=== PATIENT | male | born 1955 | race Caucasian/White ===

== ENCOUNTER 2017-02-02 14:04 | Inpatient (IN) ==
--- NOTE | 2017-02-02 14:43 | Emergency Department Report ---
URI/Sore Throat HPI - General Chief Complaint: Upper Respiratory Infection Stated Complaint: LBP Time Seen by Provider: 02/02/17 14:42 - Related Data Home Medications Medication Instructions Recorded Confirmed Advair Diskus (Fluticasone 250 1 puff INH Q12H 10/02/16 02/02/17 mcg-salmeterol 50 mcg)dose powdr for inhalation Albuterol Sulfate [Proventil Hfa 90 mcg INH Q6H PRN 02/02/17 02/02/17 90mcg] Escitalopram Oxalate [Lexapro] 20 mg PO DAILY 02/02/17 02/02/17 Previous Rx's Medication Instructions Recorded Restoril (temazepam) 15 mg capsule 15 mg PO DAILY #30 cap 01/27/17 Allergies Allergy/AdvReac Type Severity Reaction Status Date / Time No Known Allergies Allergy Verified 02/02/17 13:02 [facility] Patient Stated Medical History Asthma Yes Clinic Medical History (Last Reviewed 02/02/17 @ 13:06 by WARREN De Guzman) Anxiety (Chronic Medical) Tobacco abuse (Chronic Medical) Asthma (Chronic Medical) Family History: Family History (Last Reviewed 02/02/17 @ 13:06 by WARREN De Guzman) Father Leukemia Mother No problems noted. Sister No problems noted. Sister Drug abuse Son No problems noted. Daughter No problems noted. Sister No problems noted. Sister No problems noted. Son No problems noted. - Social History Smoking status: Current every day smoker Course Vital Signs Temperature 98.1 F 02/02/17 14:07 Pulse Rate 112 H 02/02/17 14:07 Respiratory Rate 20 02/02/17 14:07 Blood Pressure 121/68 02/02/17 14:07 Pulse Oximetry 90 02/02/17 14:07 Temperature 98.1 F 02/02/17 14:07 Pulse Rate 97 02/02/17 16:02 Respiratory Rate 16 02/02/17 16:49 Blood Pressure 112/63 02/02/17 16:02 Pulse Oximetry 92 02/02/17 16:49 Upper Respiratory Infection - Lab Data Result diagrams: 02/02/17 15:00 02/02/17 15:00 Lab Results 02/02/17 02/02/17 02/02/17 Range/Units 15:00 15:00 15:00 WBC 9.5 (4.5-11.0) T/MM3 RBC 4.75 (4.50-5.90) M/MM3 Hgb 15.6 (13.5-17.5) GM/DL Hct 45.4 (41-53) % MCV 95.6 (80-100) UM3 MCH 32.8 (26-34) UUG MCHC 34.4 (31-37) GM/DL RDW Std Deviation 44.9 (36.9-50.2) FL Plt Count 151 (130-400) T/MM3 MPV 10.4 (9.4-12.4) UM3 Immature Gran % (Auto) Not performed Neut % (Auto) Not performed Lymph % (Auto) Not performed [place] % (Auto) Not performed Eos % (Auto) Not performed Baso % (Auto) Not performed Neut # (Auto) Not performed Lymph # (Auto) Not performed [place] # (Auto) Not performed Eos # (Auto) Not performed Baso # (Auto) Not performed Abs Immat Gran (auto) Not performed Neutrophils % (Manual) 74.0 H (33-66) % Band Neutrophils % 3.0 (0-6) % Lymphocytes % (Manual) 17.0 L (23-45) % Monocytes % (Manual) 5.0 (0-9.0) % Eosinophils % (Manual) 1.0 (0-4) % Neutrophils # (Manual) 7.0 (1.8-7.7) T/MM3 Band Neutrophils # 0.3 T/MM3 Lymphocytes # (Manual) 1.6 (1-4.8) T/MM3 Monocytes # (Manual) 0.5 (0-0.8) T/MM3 Eosinophils # (Manual) 0.1 (0-0.5) T/MM3 RBC Morph Comment Normal Turbidity < 20 (0-20) Sodium 133 L (134-144) MEQ/L Potassium 4.0 (3.6-5) MEQ/L Chloride 96 L (98-107) MEQ/L Carbon Dioxide 25 (22-30) MEQ/L Anion Gap 12 (5-15) MEQ/L BUN 15.0 (9-20) MG/DL Creatinine 0.8 (0.8-1.5) MG/DL GFR Calculation 98 BUN/Creatinine Ratio 19 (6-26) RATIO Glucose 101 (75-110) MG/DL Calculated Osmolality 257 L (261-280) MOSM/KG Calcium 8.3 L (8.4-10.2) MG/DL Total Bilirubin 0.40 (0.20-1.30) MG/DL Icterus Index < 2 (0-7) AST 49 (17-59) U/L ALT 38 (21-72) U/L Alkaline Phosphatase 62 (38-126) U/L Troponin I < 0.012 (0-0.12) ng/ml Total Protein 6.4 (6.3-8.2) G/DL Albumin 3.8 (3.5-5.0) G/DL Globulin 2.6 (2.4-3.6) G/DL Albumin/Globulin Ratio 1.5 (1.1-2.2) RATIO Specimen Hemolysis < 15 (0-25) Adenovirus (PCR) Negative (Negative) B.parapertussis DNA PCR Negative (Negative) C. pneumoniae DNA (PCR) Negative (Negative) Coronavirus OC43 (PCR) Negative (Negative) Coronavirus HKU1 (PCR) Negative (Negative) Coronavirus 229E (PCR) Negative (Negative) Coronavirus NL63 (PCR) Negative (Negative) Human Metapneumovir PCR Negative (Negative) Influenza Type A (PCR) Detect inf a h1-2009 A (Negative) Influenza Type B (PCR) Negative (Negative) M. pneumoniae (PCR) Negative (Negative) Parainfluenza 1 (PCR) Negative (Negative) Parainfluenza 2 (PCR) Negative (Negative) Parainfluenza 3 (PCR) Negative (Negative) Parainfluenza 4 (PCR) Negative (Negative) RSV (PCR) Negative (Negative) Entero/Rhino (PCR) Negative (Negative) Disposition Clinical Impression: Influenza A, Hypoxemia requiring supplemental oxygen Disposition: 02 To [facility] [place] Care Condition: Stable Prescriptions: No Action Escitalopram Oxalate [Lexapro] 20 mg PO DAILY Albuterol Sulfate [Proventil Hfa 90mcg] 90 mcg INH Q6H PRN PRN Reason: Shortness Of Air Restoril (temazepam) 15 mg capsule 15 mg PO DAILY #30 cap Advair Diskus (Fluticasone 250 mcg-salmeterol 50 mcg)dose powdr for inhalation 1 puff INH Q12H Referrals: Lj Velasco DO [Family Provider] - Time of Disposition: 17:11 - Seen By: physician
[2017-02-02] MEDS ORDERED: ALBUTEROL/IPRATROPIUM 2.5mg-0.5mg/3ml NEB AEROSOL ONE ×2 (14:48→16:21)
[2017-02-02] MEDS ORDERED: METHYLPREDNISOLONE SOD SUCC 125mg/2ml INJECTION IVP ONE (16:21)
[2017-02-02] MEDS: SALINE FLUSH 10ml SYRINGE IVF PRN (16:39)
--- NOTE | 2017-02-02 17:57 | History & Physical Report ---
History of Present Illness Date: 02/02/17 Chief complaint: cough, cold symptoms, fatigue HPI: Enrique Emery is a 61 year old male who became sick on 01/28/17 with cough, cold, and severe fatigue. He spent a couple of days in bed. He and his suspect a fever b/c he's had times when he's freezing cold and then has night sweats. He hasn't felt terribly short of breath but has been coughing hard, and his lower abdomen is sore each time he coughs or moves. He hasn't had an appetite but has been trying to drink plenty of water and gatorade. He hasn't smoked cigarettes for the last few days. He denies headache, dizziness, or sore throat. He denies abdominal pain, nausea, or vomiting. He's had mild problems with constipation but this is improving. He denies urinary changes. No leg swelling, chest pain, or palpitations. He states that overall, he's healthy, but takes medication to help him sleep at night. He saw his PCP Dr. Velasco on 02/02/17 for abdominal pain, and in the clinic was found to be hypotensive 97/64, tachycardic 113, and hypoxic on room air 89%. Dr. Velasco recommended admission to the hospital, but Enrique initially declined, but agreed to have further evaluation. He was seen in the ED, and again was hypoxic at 88% on room air. Viral panel was positive for influenza A (he did not receive flu shot this year). WBC was normal at 9.5; Na was slightly low at 3.3. CXR and KUB were reviewed - CXR showed hyperinflation but no obvious pneumonia and KUB was negative for obstruction. He was given a DuoNeb treatment and Solu-Medrol in the ED. With his hypoxia, he was agreeable to admission, and was placed into inpatient status. LOS is expected to exceed 2 overnights. Review of Systems All systems PM: 10-point ROS was reviewed, no additional remarkable complaints except - Constitutional Constitutional: Present: as per HPI, anorexia, chills, daytime sleepiness, fatigue, fever(s) - EENMT Eyes: Absent: change in vision Nose: Present: as per HPI Mouth/Throat: Present: dry mouth. Absent: sore throat - Cardiovascular Cardiovascular: Absent: chest pain - Respiratory Respiratory: Present: cough. Absent: chest congestion - Gastrointestinal Gastrointestinal: Present: abdominal pain, constipation. Absent: diarrhea, vomiting - Genitourinary Genitourinary: Absent: difficulty urinating, dysuria - Musculoskeletal Musculoskeletal: Absent: myalgias, stiffness - Integumentary/Breasts Integumentary: Absent: rash, wounds - Neurological Neurological: Absent: abnormal gait, confusion, dizziness, headache(s), numbness - Psychiatric Psychiatric: Present: abnormal sleep pattern. Absent: anxiety, depression - Endocrine Endocrine: Present: as per HPI, excessive sweating - Hematologic/Lymphatic Hematologic/Lymphatic: Absent: easy bruising Past Medical History Asthma, suspect COPD Underweight, BMI 18.3 Surgical History: Denies. Family History Updates: Father of leukemia around age 72. Mother of complications of Alzheimer's at age 78. Enrique doesn't know medical history for his paternal grandparents, but his maternal grandparents were healthy to his recollection and at old ages. Enrique has 4 sisters, all of whom are healthy. - Social History Smoking status: Current every day smoker Packs per day: 0.5 Packs-years: 20 Substance use type: does not use Alcohol intake frequency: other (drinks most days per week, intake varies and includes beer and Fireball shots) Household members: spouse Current occupation: crime lab technician Medications Home Medications Medication Instructions Recorded Confirmed Type Advair Diskus (Fluticasone 250 1 puff INH Q12H 10/02/16 02/02/17 History mcg-salmeterol 50 mcg)dose powdr for inhalation Albuterol Sulfate [Proventil Hfa 90 mcg INH Q6H PRN 02/02/17 02/02/17 History 90mcg] Escitalopram Oxalate [Lexapro] 20 mg PO DAILY 02/02/17 02/02/17 History Allergies Allergy/AdvReac Type Severity Reaction Status Date / Time No Known Allergies Allergy Verified 02/02/17 13:02 Exam Vital Signs: Temperature 98.1 F 02/02/17 14:07 Pulse Rate 110 H 02/02/17 17:30 Respiratory Rate 21 02/02/17 17:30 Blood Pressure 126/60 02/02/17 17:27 Pulse Oximetry 87 L 02/02/17 17:30 Height/Weight/BMI: Height 1.83 m Weight 61.1 kg - Constitutional Present: no acute distress, well nourished, well developed, thin - Routine HEENT Exam Head: Present: normocephalic Eye: Present: PERRL. Absent: conjunctival icterus, scleral injection ENT: Present: mucous membranes dry, oropharynx clear - Routine Neck Exam Present: lymphadenopathy - Routine Respiratory Exam Present: decreased breath sounds - Routine Cardiovascular Exam Present: RRR, S1, S2, tachycardia - Routine Abdominal Exam Present: soft, normoactive bowel sounds, tenderness (diffuse tenderness to lower quadrants) - Routine Extremities Exam Present: no edema, pulses intact - Routine Back/Spine/Pelvis Exam Back/Spine: Present: full ROM - Routine Skin Exam Present: intact, dry, warm - Routine Neurological Exam Present: alert, oriented X3, CN II-XII intact, normal speech - Routine Psychiatric Exam Present: normal affect, normal thought process, cooperative Results - Labs CBC & Chem 7: 02/02/17 15:00 02/02/17 15:00 Assessment and Plan (1) Hypoxemia requiring supplemental oxygen Current visit: Yes Status: Acute Assessment and Plan: IMPRESSION Hypoxia with room air saturations of 88% Influenza A Hyponatremia, present on admission Asthma, suspect COPD Tobaccoism Alcohol use Underweight, BMI 18.3 PLAN Admit, inpatient status, under the hospitalist service. Influenza A -start Tamiflu -respiratory precautions Hypoxia, suspect COPD -supplemental oxygen -DuoNebs, Pulmicort, acapella -No wheezing heard on exam; will hold off on additional steroids but if he begins to wheeze we may consider steroids -consider f/u with pulmonology, consult if resp sx worsen -tobacco cessation counseling; pt voiced interest in quitting Hyponatremia, mild -repeat BMP in am -asymptomatic Alcohol use -Serax PRN -denies hx of withdrawal sx -start folic acid and thiamine daily 02/02/2017-I reviewed this chart, the patient history, and the PUBLIC HEALTH CLINICAL NURSE SPECIALIST's/PA's documented findings as above. We discussed and formulated the assessment and plan as above with the additions below.-Jose Daniel The patient states that he no longer feels short of breath. He is currently on 5 L of oxygen. He has had a dry cough. He feels thirsty. He has some lower abdominal pain which she thinks is from frequent coughing. He denies any nausea , vomiting or diarrhea. He is urinating without difficulties. He has recently had fevers and chills and loss of appetite over the past 5 days. Prior to this illness he was doing well. Weight has been stable. On exam he is alert and oriented and in no acute distress. He is very thin. HEENT reveals oropharynx is moist with white coating on his tongue which is not painful. Neck is supple without lymphadenopathy. Chest reveals minimal wheezing. Mild coarse breath sounds in the right base. Abdomen is soft with mild tenderness in the lower abdomen which she thinks is from coughing. Extremities are free of edema. Skin is warm and dry and without rashes. Lab is reviewed Chest x-ray is clear on my read and per radiology. There is hyper inflation suggesting COPD KUB reveals a nonobstructive nonspecific bowel gas pattern Impression Influenza A Acute respiratory failure secondary to influenza Probable COPD with COPD exacerbation Mild hyponatremia Chronic alcohol use-no signs of withdrawal Plan Admit as inpatient. Supplemental O2. Tamiflu. Breathing treatments. We'll continue IV steroids. We'll check lactate and ABG. We'll give folate and thiamine. The patient was encouraged to notify his nurse if he feels short of breath, or has chest pain, nausea or any other concerns. Recheck chest x-ray tomorrow. DVT Prophylaxis: SCD's Resuscitation Status: Full Code - Physician Narrative Narrative: Date: 02/02/17 Time: 1753 Hospital Course Summary Disclaimer: The visit summary below is not to be considered part of the above Progress Note. Hospital Course: 02/02/17 Admitted to inpatient status for hypoxemia with room air saturation of 88%. Started Tamiflu for influenza A. CXR showed hyperinflation. Provided supportive respiratory care with Sammy Manuel acapella. Tobacco cessation information provided.
[2017-02-02] MEDS ORDERED: NICOTINE 21 MG PATCH TD PRN (18:10)
[2017-02-02] MEDS ORDERED: OXAZEPAM 30 MG CAPSULE PO PRN (18:11)
[2017-02-02] MEDS ORDERED: GUAIFENESIN/D-METHORPHAN 600mg/30mg TABLET PO PRN (18:19)
[2017-02-02] MEDS ORDERED: MENTHOL COUGH DROPS (RICOLA) MM PRN (18:20)
[2017-02-02] MEDS ORDERED: ACETAMINOPHEN 325 MG TABLET PO PRN (18:21)
[2017-02-02 18:22] VITALS: BMI 17.4
[2017-02-02] MEDS ORDERED: NICOTINE PATCH REMOVAL TD PRN (18:47)
[2017-02-02] MEDS: TEMAZEPAM 15 MG CAPSULE PO SCH (20:08)
[2017-02-02] MEDS: ALBUTEROL/IPRATROPIUM 2.5mg-0.5mg/3ml NEB AEROSOL SCH (20:19)
[2017-02-02] MEDS: BUDESONIDE INH.SOLN 0.5mg/2ml NEB AEROSOL SCH (20:19)
[2017-02-03] MEDS: ALBUTEROL/IPRATROPIUM 2.5mg-0.5mg/3ml NEB AEROSOL SCH ×4 (09:25→21:09)
[2017-02-03] MEDS: BUDESONIDE INH.SOLN 0.5mg/2ml NEB AEROSOL SCH ×2 (09:25→21:09)
[2017-02-03] MEDS: FOLIC ACID 1 MG TABLET PO SCH (09:59)
[2017-02-03] MEDS: ESCITALOPRAM 20 MG TABLET PO SCH (09:59)
[2017-02-03] MEDS ORDERED: DEXTROSE 50% SYRINGE 50ml (1 AMP) IVP PRN (10:31)
[2017-02-03] MEDS ORDERED: GLUCOSE ORAL GEL 40% 37.5gm PO PRN (10:31)
[2017-02-03] MEDS ORDERED: INSULIN ASPART 100unit/ml INJECTION SQ PRN (10:31)
--- NOTE | 2017-02-03 15:18 | Progress Note ---
- Date 02/03/17 Subjective: Enrique is seen today in follow up for his respiratory distress with hypoxia secondary to influenza A. He is seen while resting in bed, watching TV and reports that he is feeling significantly better today. He reports that his breathing is improved and he only coughs occasionally. His cough remains non- productive. No fever or chills. He continues to require supplemental oxygen but has been weaned down to 1L via NC, maintaining SAO2 around 90%. He states that his appetite has significantly improved today and his bowels are moving. No chest pain, shortness of breath, nausea, vomiting or dysuria. He continues to complain of abdominal pain but is clear to specify that it is his abdominal muscles that hurt from excessive coughing. Hyponatremia resolved. He denies any signs of alcohol or tobacco withdrawal. Objective Vital signs: Temperature 96.8 F 02/03/17 08:23 Pulse Rate 82 02/03/17 15:08 Respiratory Rate 20 02/03/17 15:08 Blood Pressure 114/66 02/03/17 15:08 Pulse Oximetry 90 02/03/17 15:08 Rhythm: Normal Sinus Rhythm Height/Weight/BMI: Height 6 ft Weight 126 lb 15.78 oz Body Mass Index 17.4 Comments: Resting in bed, watching TV and in no apparent distress. A&O x 3. No cough on exam. - Constitutional Present: no acute distress, well nourished, well developed, thin, cooperative - Routine HEENT Exam Head: Present: normocephalic, atraumatic Eye: Present: PERRL. Absent: conjunctival icterus ENT: Present: mucous membranes moist. Absent: dentition normal (missing front teeth) - Routine Respiratory Exam Present: decreased breath sounds, diminished air movement Comments: breathing easily on 1L NC; no conversational dyspnea or cough on exam; course breath sounds bilaterally without wheezing. - Routine Cardiovascular Exam Present: RRR, S1, S2 - Routine Abdominal Exam Present: soft, normoactive bowel sounds, non distended, non tender. Absent: rebound, guarding, firm - Routine Extremities Exam Present: no edema, non tender, full ROM, pulses intact - Routine Back/Spine/Pelvis Exam Back/Spine: Present: full ROM. Absent: vertebral tenderness - Routine Musculoskeletal Exam Musculoskeletal: Present: moving extremities well - Routine Skin Exam Present: intact, dry, warm. Absent: jaundice Comments: afebrile. - Routine Neurological Exam Present: alert, oriented X3, moving all extremities, hearing grossly intact, normal speech. Absent: facial asymmetry - Routine Lymphatic Exam Lymphatic: Absent: lymphedema - Routine Psychiatric Exam Present: normal affect, normal thought process, cooperative Results - Labs CBC & Chem 7: 02/02/17 15:00 02/03/17 03:59 - ABG Interpretation ABG results: 02/02/17 18:40 ABG pH 7.490 H ABG pCO2 34 ABG pO2 63 L ABG HCO3 26 ABG Total CO2 26.9 ABG O2 Saturation 94.0 L ABG Base Excess 2.8 H Assessment and Plan (1) Hypoxemia requiring supplemental oxygen Current visit: Yes Status: Acute (2) Influenza A Current visit: Yes Status: Acute Assessment and Plan: IMPRESSION Hypoxia with room air saturations of 88% Influenza A Hyponatremia, present on admission Asthma, suspect COPD Tobaccoism Alcohol use Underweight, BMI 18.3 PLAN - 02/03/17 (Mirakian) Overall, Enrique is making good gains and reports feeling much better. He continues to require supplemental oxygen but has been weaned down to 1L via NC. Continue to wean down oxygen as he does not wear oxygen at home. Suspected history of COPD given history of tobaccoism and initial CXR findings consistent with COPD. Recommend goal of pulse ox to be 90-95%. Continue Tamiflu for treatment of influenza A - initiated on 02/02/17-02/06/17. Maintain respiratory precautions until Tamiflu is complete. No wheezing heard on exam, though course lung sounds noted bilaterally in bases. Continue DuoNeb and Pulmicort treatments and encourage Acapella for pulmonary toileting. Given improved state without wheezing, will continue to hold off on steroid treatment. Discussed with Dr. Sky. Consider follow-up with pulmonology as out patient for additional pulmonary function testing given suspected COPD. Tobacco cessation counseling provided. Continue to encourage smoking cessation and nicotine patch provided. Asymptomatic hyponatremia noted on admission and resolved. Continue to monitor closely. Will recheck BMP in AM to monitor electrolytes and renal function. Encourage oral intake. History of daily alcohol use prior to admission. Patient denies withdrawal. Continue Serax PRN as well as folic acid and thiamine daily. Hyperglycemia noted with fasting labs. Suspect secondary to steroid effect and anticipate resolution in light of discontinuation of steroids. Will discontinue BGMs. Anticipate discharge in near future, hopefully 02/04/17. He denies a history of oxygen use at home. 02/03/2017-I reviewed this chart, the patient history, and the CODING FILE CLERK's/PA's documented findings as above. We discussed and formulated the assessment and plan as above with the additions below.-Dr. Sky Patient states he is feeling better today. His energy level is better. He is eating and drinking much better. He was down to 1 L per nasal cannula, but is now back up to 2.5 L. His oxygen saturation is currently 90% on 2.5 L. He denies any pain. On exam he is alert and oriented and in no acute distress. He has no tremulousness. Chest reveals prolonged expiratory phase and some end expiratory wheezing. Cardiovascular reveals a regular rate and rhythm. Extremities are free of edema. Chest x-ray today shows no infiltrates. He does have hyper inflation. Impression and plan Acute hypoxic respiratory failure-continue oxygen, breathing treatments Influenza A- continue Tamiflu, isolation precautions Probable COPD exacerbation-start low-dose steroids orally Hopefully home in the next few days. I did encourage the patient to get the flu shot yearly. I also recommended he get the pneumonia vaccine if he has not already received it. DVT Prophylaxis: SCD's Resuscitation Status: Full Code - Time spent with patient Time with patient PN: 35 minutes - Physician Narrative Physician: Maylin Johansen MD Narrative: Date: 02/03/17 Time: 1515 Hospital Course Summary Disclaimer: The visit summary below is not to be considered part of the above Progress Note. Hospital Course: 02/02/17 Admitted to inpatient status for hypoxemia with room air saturation of 88%. Started Tamiflu for influenza A. CXR showed hyperinflation. Provided supportive respiratory care with DuoNebs, Pulmicort, acapella. Tobacco cessation information provided. PLAN - 02/03/17 ([place]akian) Overall, Enrique is making good gains and reports feeling much better. He continues to require supplemental oxygen but has been weaned down to 1L via NC. Continue to wean down oxygen as he does not wear oxygen at home. Suspected history of COPD given history of tobaccoism and initial CXR findings consistent with COPD. Recommend goal of pulse ox to be 90-95%. Continue Tamiflu for treatment of influenza A - initiated on 02/02/17-02/06/17. Maintain respiratory precautions until Tamiflu is complete. No wheezing heard on exam, though course lung sounds noted bilaterally in bases. Continue DuoNeb and Pulmicort treatments and encourage Acapella for pulmonary toileting. Given improved state without wheezing, will continue to hold off on steroid treatment. Discussed with Dr. Sky. Consider follow-up with pulmonology as out patient for additional pulmonary function testing given suspected COPD. Tobacco cessation counseling provided. Continue to encourage smoking cessation and nicotine patch provided. Asymptomatic hyponatremia noted on admission and resolved. Continue to monitor closely. Will recheck BMP in AM to monitor electrolytes and renal function. Encourage oral intake. History of daily alcohol use prior to admission. Patient denies withdrawal. Continue Serax PRN as well as folic acid and thiamine daily. Hyperglycemia noted with fasting labs. Suspect secondary to steroid effect and anticipate resolution in light of discontinuation of steroids. Will discontinue BGMs. Anticipate discharge in near future, hopefully 02/04/17. He denies a history of oxygen use at home.
--- NOTE | 2017-02-03 15:31 | XRay Report ---
Indication: dyspnea PROCEDURE: XR chest 1V: Encounter: Initial Comparison: February 02, 2017 Findings: The lungs are stable in appearance without new focal airspace consolidation. There is no pleural effusion or pneumothorax. The heart size, pulmonary vascularity and mediastinal contours are unchanged. IMPRESSION: Stable appearance of the chest without acute cardiopulmonary disease. .
[2017-02-03] MEDS ORDERED: ENOXAPARIN - PHARMACY CONSULT MC ONE (18:40)
[2017-02-03] MEDS: PredniSONE 20 MG TABLET PO SCH (19:09)
[2017-02-03] MEDS: ENOXAPARIN 40 MG/0.4 ML INJECTION SQ SCH (19:09)
[2017-02-03] MEDS: TEMAZEPAM 15 MG CAPSULE PO SCH (21:06)
[2017-02-03] MEDS: SALINE FLUSH 10ml SYRINGE IVF PRN (21:06)
[2017-02-04] MEDS: BUDESONIDE INH.SOLN 0.5mg/2ml NEB AEROSOL SCH ×2 (08:01→19:38)
[2017-02-04] MEDS: ALBUTEROL/IPRATROPIUM 2.5mg-0.5mg/3ml NEB AEROSOL SCH ×4 (08:01→19:37)
[2017-02-04] MEDS: ENOXAPARIN 40 MG/0.4 ML INJECTION SQ SCH (08:46)
[2017-02-04] MEDS: ESCITALOPRAM 20 MG TABLET PO SCH (08:46)
[2017-02-04] MEDS: FOLIC ACID 1 MG TABLET PO SCH (08:46)
[2017-02-04] MEDS: PredniSONE 20 MG TABLET PO SCH (08:46)
--- NOTE | 2017-02-04 15:50 | Progress Note ---
- Date 02/04/17 Subjective: Mr Emery is seen and examined today. Overall he states that he is feeling much better. He does get up to go to the bathroom and this wears him out. He continues to require 3 liters of oxygen to maintain saturations. His cough is not productive. Appetite improving. Afebrile. Objective Vital signs: Temperature 97.7 F 02/04/17 15:09 Pulse Rate 76 02/04/17 15:09 Respiratory Rate 18 02/04/17 15:09 Blood Pressure 104/64 02/04/17 15:09 Pulse Oximetry 95 02/04/17 15:09 Height/Weight/BMI: Height 1.83 m Weight 57.2 kg Body Mass Index 17.4 - Constitutional Present: no acute distress, well nourished, well developed - Routine HEENT Exam Eye: Present: EOMI ENT: Present: mucous membranes moist, dentition normal - Routine Respiratory Exam Present: wheezes, diminished air movement (bases) - Routine Cardiovascular Exam Present: RRR, S1, S2. Absent: murmur - Routine Abdominal Exam Present: soft, normoactive bowel sounds, non distended. Absent: tenderness - Routine Extremities Exam Present: normal capillary refill - Routine Skin Exam Present: dry, warm - Routine Neurological Exam Present: alert, oriented X3, CN II-XII intact - Routine Lymphatic Exam Lymphatic: Absent: adenopathy - Routine Psychiatric Exam Present: normal affect, cooperative Results - Labs CBC & Chem 7: 02/04/17 04:18 02/04/17 04:18 - ABG Interpretation ABG results: 02/02/17 18:40 ABG pH 7.490 H ABG pCO2 34 ABG pO2 63 L ABG HCO3 26 ABG Total CO2 26.9 ABG O2 Saturation 94.0 L ABG Base Excess 2.8 H Assessment and Plan (1) Influenza A Current visit: Yes Status: Acute (2) Hypoxemia requiring supplemental oxygen Current visit: Yes Status: Acute Assessment and Plan: IMPRESSION Hypoxia with room air saturations of 88% Influenza A Hyponatremia, present on admission- resolved Asthma, suspect COPD Tobaccoism Alcohol use Underweight, BMI 18.3 PLAN - 02/04 Continue to work on weaning down oxygen- currently on 3 liters. Continue with scheduled breathing tx Remains on Tamiflu through 02/06/17. Continue Mucinex DM and acapella to mobilize secretions. Today to follow routine labs, white count at 14.5, likely secondary to prednisone use Discussed with attending, Dr Lauri Carreon Assessment As above with: Acute respiratory failure secondary to influenza DVT Prophylaxis: Lovenox Resuscitation Status: Full Code - Time spent with patient Time with patient PN: 25 minutes - Physician Narrative Physician: Lencho Carreon MD Narrative: Date: 02/04/17 Time: 1644 Lauri Have independently interviewed and examined pt. Chart reviewed. Cased discussed with CM and my SALES DRIVER. Care plan developed with my supervision; agree with above. Improving. Mobilizing more sputum. O2 needs varies - at times maintaining on 1L but other times needing to increase to 3L; mostly varies with his congestion. No pain with breathing. Eating well. Bowel moving. No ab pain. Still feels thirsty. Urinating well. Strength improving. Lungs: decreased, scattered wheezes. Upper airway noises. CV: regular AB: soft flat NT/ND +BS MSE: awake alert appropriate Assessment As above with: Acute respiratory failure secondary to influenza Plan: Continue with Tamiflu for treatment of influenza. Continue Neb treatment, mucolytics and acapella. Encourage activities. Wean O2. Hospital Course Summary Disclaimer: The visit summary below is not to be considered part of the above Progress Note. Hospital Course: 02/02/17 Admitted to inpatient status for hypoxemia with room air saturation of 88%. Started Tamiflu for influenza A. CXR showed hyperinflation. Provided supportive respiratory care with DuoNebs, Pulmicort, acapella. Tobacco cessation information provided. PLAN - 02/03/17 ([place]) Overall, Enrique is making good gains and reports feeling much better. He continues to require supplemental oxygen but has been weaned down to 1L via NC. Continue to wean down oxygen as he does not wear oxygen at home. Suspected history of COPD given history of tobaccoism and initial CXR findings consistent with COPD. Recommend goal of pulse ox to be 90-95%. Continue Tamiflu for treatment of influenza A - initiated on 02/02/17-02/06/17. Maintain respiratory precautions until Tamiflu is complete. No wheezing heard on exam, though course lung sounds noted bilaterally in bases. Continue DuoNeb and Pulmicort treatments and encourage Acapella for pulmonary toileting. Given improved state without wheezing, will continue to hold off on steroid treatment. Discussed with Dr. Sky. Consider follow-up with pulmonology as out patient for additional pulmonary function testing given suspected COPD. Tobacco cessation counseling provided. Continue to encourage smoking cessation and nicotine patch provided. Asymptomatic hyponatremia noted on admission and resolved. Continue to monitor closely. Will recheck BMP in AM to monitor electrolytes and renal function. Encourage oral intake. History of daily alcohol use prior to admission. Patient denies withdrawal. Continue Serax PRN as well as folic acid and thiamine daily. Hyperglycemia noted with fasting labs. Suspect secondary to steroid effect and anticipate resolution in light of discontinuation of steroids. Will discontinue BGMs. Anticipate discharge in near future, hopefully 02/04/17. He denies a history of oxygen use at home. PLAN - 02/04 Continue to work on weaning down oxygen- currently on 3 liters. Continue with scheduled breathing tx Remains on Tamiflu through 02/06/17. Continue Mucinex DM and a cappella to mobilize secretions. Today to follow routine labs, white count at 14.5, likely secondary to prednisone use Discussed with attending, Dr Carreon
[2017-02-04] MEDS: TEMAZEPAM 15 MG CAPSULE PO SCH (20:49)
[2017-02-04] MEDS: SALINE FLUSH 10ml SYRINGE IVF PRN (20:50)
[2017-02-05] MEDS: ALBUTEROL/IPRATROPIUM 2.5mg-0.5mg/3ml NEB AEROSOL SCH ×4 (06:55→19:15)
[2017-02-05] MEDS: BUDESONIDE INH.SOLN 0.5mg/2ml NEB AEROSOL SCH ×2 (06:55→19:15)
[2017-02-05] MEDS: ESCITALOPRAM 20 MG TABLET PO SCH (08:52)
[2017-02-05] MEDS: FOLIC ACID 1 MG TABLET PO SCH (08:52)
[2017-02-05] MEDS: ENOXAPARIN 40 MG/0.4 ML INJECTION SQ SCH (08:52)
[2017-02-05] MEDS: PredniSONE 20 MG TABLET PO SCH (08:52)
--- NOTE | 2017-02-05 13:32 | Progress Note ---
- Date 02/05/17 Subjective: F/U: Acute hypoxic respiratory failure secondary to influenza type A Feeling better. Breathing easier. Still having cough and mobilizing sputum, but feeling less SOA. No chest wall pain. Not feeling dizzy or unsteady when up. Eating well. No nausea or ab pain. Bowels moving. Urinating well. No f/c. Strength making gains. Objective Vital signs: Temperature 98.7 F 02/05/17 08:10 Pulse Rate 78 02/05/17 08:10 Respiratory Rate 20 02/05/17 10:54 Blood Pressure 98/63 02/05/17 08:10 Pulse Oximetry 92 02/05/17 10:54 Rhythm: Normal Sinus Rhythm Height/Weight/BMI: Height 1.83 m Weight 57.9 kg Body Mass Index 17.4 - Constitutional Present: well nourished, well developed, thin, cooperative - Routine HEENT Exam Head: Present: normocephalic, atraumatic Eye: Present: EOMI ENT: Present: mucous membranes moist - Routine Respiratory Exam Present: decreased breath sounds, diminished air movement. Absent: rales, rhonchi, wheezes, crackles - Routine Cardiovascular Exam Present: RRR, no murmur - Routine Abdominal Exam Present: soft, normoactive bowel sounds. Absent: non distended, non tender, guarding - Routine Extremities Exam Present: no edema, pulses intact. Absent: cyanosis, clubbing - Routine Musculoskeletal Exam Musculoskeletal: Present: no clubbing or cyanosis, normal strength - Routine Skin Exam Present: intact, dry, warm - Routine Neurological Exam Present: alert, oriented X3, CN II-XII intact, moving all extremities, vision grossly intact, hearing grossly intact, normal speech. Absent: motor deficit, altered mental status - Routine Psychiatric Exam Present: normal affect, normal thought process, cooperative, good insight, good judgment Results - Labs CBC & Chem 7: 02/05/17 04:22 02/05/17 04:22 Assessment and Plan (1) Influenza A Current visit: Yes Status: Acute (2) Hypoxemia requiring supplemental oxygen Current visit: Yes Status: Acute Assessment and Plan: IMPRESSION Acute respiratory failure secondary to influenza Influenza A Asthma Suspect emphysema Probable COPD exacerbation secondary to influenza Tobaccoism Hyponatremia (present on admission) - resolved Steroid induced hyperglycemia Alcohol use Underweight, BMI 18.3 PLAN Saturation improving - 91-93% on 1-2L. Continue to wean O2. Remains on Tamiflu through 02/06/17. Has had 6 of 10 doses as of this morning. Continue with scheduled breathing tx. Continue acapella to mobilize secretions - will change Mucinex DM from as needed to scheduled. Encourage activities. Hope for discharge to home in near future once able to be transitioned off of O2. Case discussed with CM. Time spent with patient care 25 minutes. DVT Prophylaxis: SCD's Resuscitation Status: Full Code - Time spent with patient Time with patient PN: 25 minutes - Physician Narrative Physician: Lencho Carreon MD Narrative: Date: 02/05/17 Time: 1328 Hospital Course Summary Disclaimer: The visit summary below is not to be considered part of the above Progress Note. Hospital Course: 02/02/17 Admitted to inpatient status for hypoxemia with room air saturation of 88%. Started Tamiflu for influenza A. CXR showed hyperinflation. Provided supportive respiratory care with DuoNebs, Pulmicort, acapella. Tobacco cessation information provided. PLAN - 02/03/17 ([place]) Overall, Enrique is making good gains and reports feeling much better. He continues to require supplemental oxygen but has been weaned down to 1L via NC. Continue to wean down oxygen as he does not wear oxygen at home. Suspected history of COPD given history of tobaccoism and initial CXR findings consistent with COPD. Recommend goal of pulse ox to be 90-95%. Continue Tamiflu for treatment of influenza A - initiated on 02/02/17-02/06/17. Maintain respiratory precautions until Tamiflu is complete. No wheezing heard on exam, though course lung sounds noted bilaterally in bases. Continue DuoNeb and Pulmicort treatments and encourage Acapella for pulmonary toileting. Given improved state without wheezing, will continue to hold off on steroid treatment. Discussed with Dr. Sky. Consider follow-up with pulmonology as out patient for additional pulmonary function testing given suspected COPD. Tobacco cessation counseling provided. Continue to encourage smoking cessation and nicotine patch provided. Asymptomatic hyponatremia noted on admission and resolved. Continue to monitor closely. Will recheck BMP in AM to monitor electrolytes and renal function. Encourage oral intake. History of daily alcohol use prior to admission. Patient denies withdrawal. Continue Serax PRN as well as folic acid and thiamine daily. Hyperglycemia noted with fasting labs. Suspect secondary to steroid effect and anticipate resolution in light of discontinuation of steroids. Will discontinue BGMs. Anticipate discharge in near future, hopefully 02/04/17. He denies a history of oxygen use at home. PLAN - 02/04 Continue to work on weaning down oxygen- currently on 3 liters. Continue with scheduled breathing tx Remains on Tamiflu through 02/06/17. Continue Mucinex DM and a cappella to mobilize secretions. Today to follow routine labs, white count at 14.5, likely secondary to prednisone use Discussed with attending, Dr Carreon 02/05/17 Saturations improvin-93% on 1-2L. Continue to wean O2. Remains on Tamiflu through 02/06/17. Has had 6 of 10 doses as of this morning. Continue with scheduled breathing tx. Continue acapella to mobilize secretions - will change Mucinex DM from as needed to scheduled. Encourage activities. Hope for discharge to home in near future once able to be transitioned off of O2.
[2017-02-05] MEDS: TEMAZEPAM 15 MG CAPSULE PO SCH (21:01)
[2017-02-05] MEDS: GUAIFENESIN/D-METHORPHAN 600mg/30mg TABLET PO SCH (21:02)
[2017-02-05] MEDS: SALINE FLUSH 10ml SYRINGE IVF PRN (21:02)
[2017-02-06 00:10] VITALS: BP 99/65; TEMP 97.4
[2017-02-06] MEDS: ALBUTEROL/IPRATROPIUM 2.5mg-0.5mg/3ml NEB AEROSOL SCH ×2 (07:31→11:54)
[2017-02-06] MEDS: BUDESONIDE INH.SOLN 0.5mg/2ml NEB AEROSOL SCH (07:32)
[2017-02-06 07:34] VITALS: RESP 18
[2017-02-06] MEDS: ENOXAPARIN 40 MG/0.4 ML INJECTION SQ SCH (08:17)
[2017-02-06] MEDS: GUAIFENESIN/D-METHORPHAN 600mg/30mg TABLET PO SCH (08:18)
[2017-02-06] MEDS: PredniSONE 20 MG TABLET PO SCH (08:18)
[2017-02-06] MEDS: FOLIC ACID 1 MG TABLET PO SCH (08:18)
[2017-02-06] MEDS: ESCITALOPRAM 20 MG TABLET PO SCH (08:18)
--- NOTE | 2017-02-06 11:40 | Progress Note ---
- Date 02/06/17 Subjective: F/U: Acute hypoxic respiratory failure secondary to influenza type A Feeling better. Does still have cough/congestion, but improving. Not feeling SOA or congested. Moving well. Eating well. Feels tired of being cooped up in hospital; wants to go home. Objective Vital signs: Temperature 97.4 F 02/06/17 00:07 Pulse Rate 70 02/06/17 00:07 Respiratory Rate 18 02/06/17 07:33 Blood Pressure 99/65 02/06/17 00:07 Pulse Oximetry 90 02/06/17 11:25 Rhythm: Normal Sinus Rhythm Height/Weight/BMI: Height 1.83 m Weight 56.2 kg Body Mass Index 17.4 - Constitutional Present: well nourished, well developed, thin, cooperative - Routine HEENT Exam Head: Present: normocephalic, atraumatic Eye: Present: EOMI, PERRL ENT: Present: mucous membranes dry - Routine Respiratory Exam Present: decreased breath sounds, prolonged expiratory phase, distant breath sounds, diminished air movement. Absent: respiratory distress, wheezes, crackles - Routine Cardiovascular Exam Present: RRR, no murmur - Routine Abdominal Exam Present: soft, normoactive bowel sounds, non distended, non tender. Absent: guarding - Routine Extremities Exam Present: no edema, pulses intact. Absent: cyanosis, clubbing - Routine Musculoskeletal Exam Musculoskeletal: Present: no clubbing or cyanosis, normal strength - Routine Skin Exam Present: intact, dry, warm - Routine Neurological Exam Present: alert, oriented X3, CN II-XII intact, moving all extremities, vision grossly intact, hearing grossly intact, normal speech. Absent: motor deficit, altered mental status - Routine Psychiatric Exam Present: normal affect, normal thought process, cooperative, good insight, good judgment Results - Labs CBC & Chem 7: 02/05/17 04:22 02/05/17 04:22 Assessment and Plan (1) Influenza A Current visit: Yes Status: Acute (2) Hypoxemia requiring supplemental oxygen Current visit: Yes Status: Acute Assessment and Plan: IMPRESSION Acute respiratory failure secondary to influenza Influenza A Asthma Suspect emphysema Probable COPD exacerbation secondary to influenza Tobaccoism Hyponatremia (present on admission) - resolved Steroid induced hyperglycemia Alcohol use Underweight, BMI 18.3 PLAN Clinically improving. O2 needs much decreased RA to 0.5L. Eating well. Ambulating well. RT evaluated patient for home O2. Did not qualify for home O2. Will discharger to home. Medically stable. Will need 2 more doses of Tamiflu to complete course. Continue Acapella and Mucinex DM routinely for 1 week, then as needed. Continue home Advair and albuterol. Prednisone 20mg daily for 1 week. Will give Flu and Pneumovax now. F/U with Dr Velasco in 1 week. Will have patient off work for 1 week. See orders for details Case discussed with CM and nursing. Time spent with patient care and discharge greater than 30 minutes. DVT Prophylaxis: Lovenox Resuscitation Status: Full Code - Physician Narrative Physician: Lencho Carreon MD Narrative: Date: 02/06/17 Time: 1137 Hospital Course Summary Disclaimer: The visit summary below is not to be considered part of the above Progress Note. Hospital Course: 02/02/17 Admitted to inpatient status for hypoxemia with room air saturation of 88%. Started Tamiflu for influenza A. CXR showed hyperinflation. Provided supportive respiratory care with DuoNebs, Pulmicort, acapella. Tobacco cessation information provided. PLAN - 02/03/17 ([place]) Overall, Enrique is making good gains and reports feeling much better. He continues to require supplemental oxygen but has been weaned down to 1L via NC. Continue to wean down oxygen as he does not wear oxygen at home. Suspected history of COPD given history of tobaccoism and initial CXR findings consistent with COPD. Recommend goal of pulse ox to be 90-95%. Continue Tamiflu for treatment of influenza A - initiated on 02/02/17-02/06/17. Maintain respiratory precautions until Tamiflu is complete. No wheezing heard on exam, though course lung sounds noted bilaterally in bases. Continue DuoNeb and Pulmicort treatments and encourage Acapella for pulmonary toileting. Given improved state without wheezing, will continue to hold off on steroid treatment. Discussed with Dr. Sky. Consider follow-up with pulmonology as out patient for additional pulmonary function testing given suspected COPD. Tobacco cessation counseling provided. Continue to encourage smoking cessation and nicotine patch provided. Asymptomatic hyponatremia noted on admission and resolved. Continue to monitor closely. Will recheck BMP in AM to monitor electrolytes and renal function. Encourage oral intake. History of daily alcohol use prior to admission. Patient denies withdrawal. Continue Serax PRN as well as folic acid and thiamine daily. Hyperglycemia noted with fasting labs. Suspect secondary to steroid effect and anticipate resolution in light of discontinuation of steroids. Will discontinue BGMs. Anticipate discharge in near future, hopefully 02/04/17. He denies a history of oxygen use at home. PLAN - 02/04 Continue to work on weaning down oxygen- currently on 3 liters. Continue with scheduled breathing tx Remains on Tamiflu through 02/06/17. Continue Mucinex DM and a cappella to mobilize secretions. Today to follow routine labs, white count at 14.5, likely secondary to prednisone use Discussed with attending, Dr Carreon 02/05/17 Saturations improvin-93% on 1-2L. Continue to wean O2. Remains on Tamiflu through 02/06/17. Has had 6 of 10 doses as of this morning. Continue with scheduled breathing tx. Continue acapella to mobilize secretions - will change Mucinex DM from as needed to scheduled. Encourage activities. Hope for discharge to home in near future once able to be transitioned off of O2. 02/06/17 Clinically improving. O2 needs much decreased RA to 0.5L. Eating well. Ambulating well. RT evaluated patient for home O2. Did not qualify for home O2. Will discharger to home. Medically stable. Will need 2 more doses of Tamiflu to complete course. Continue Acapella and Mucinex DM routinely for 1 week, then as needed. Continue home Advair and albuterol. Prednisone 20mg daily for 1 week. Will give Flu and Pneumovax now. F/U with Dr Velasco in 1 week. Will have patient off work for 1 week. See orders for details
[2017-02-06 11:54] VITALS: O2SAT 92
[2017-02-06 12:16] VITALS: PULSE 83
--- NOTE | 2017-02-06 13:11 | Discharge Summary ---
Discharge Information Date of admission: 02/02/17 17:51 Anticipated date of discharge: 02/06/17 Attending Physician: Lencho Carreon MD Primary care physician: Lj Velasco DO Consults: RT for tobacco cessation - Discharge Diagnosis (1) Hypoxemia requiring supplemental oxygen Status: Acute (2) Influenza A Status: Acute Discharge diagnosis Acute respiratory failure with hypoxia secondary to influenza Associated conditions and complications Influenza A Asthma Suspect emphysema Probable COPD exacerbation secondary to influenza Tobaccoism Hyponatremia (present on admission) - resolved Steroid induced hyperglycemia Alcohol use Underweight, BMI 18.3 - Laboratory Labs: 02/05/17 04:22 02/05/17 04:22 - Radiology Radiology: Date of Exam: 02/03/17 PROCEDURE: XR chest 1V Findings: The lungs are stable in appearance without new focal airspace consolidation. There is no pleural effusion or pneumothorax. The heart size, pulmonary vascularity and mediastinal contours are unchanged. IMPRESSION: Stable appearance of the chest without acute cardiopulmonary disease. History of Present Illness HPI: Enrique Emery is a 61 year old male who became sick on 01/28/17 with cough, cold, and severe fatigue. He spent a couple of days in bed. He and his suspect a fever b/c he's had times when he's freezing cold and then has night sweats. He hasn't felt terribly short of breath but has been coughing hard, and his lower abdomen is sore each time he coughs or moves. He hasn't had an appetite but has been trying to drink plenty of water and gatorade. He hasn't smoked cigarettes for the last few days. He denies headache, dizziness, or sore throat. He denies abdominal pain, nausea, or vomiting. He's had mild problems with constipation but this is improving. He denies urinary changes. No leg swelling, chest pain, or palpitations. He states that overall, he's healthy, but takes medication to help him sleep at night. He saw his PCP Dr. Velasco on 02/02/17 for abdominal pain, and in the clinic was found to be hypotensive 97/64, tachycardic 113, and hypoxic on room air 89%. Dr. Velasco recommended admission to the hospital, but Enrique initially declined, but agreed to have further evaluation. He was seen in the ED, and again was hypoxic at 88% on room air. Viral panel was positive for influenza A (he did not receive flu shot this year). WBC was normal at 9.5; Na was slightly low at 3.3. CXR and KUB were reviewed - CXR showed hyperinflation but no obvious pneumonia and KUB was negative for obstruction. He was given a DuoNeb treatment and Solu-Medrol in the ED. With his hypoxia, he was agreeable to admission, and was placed into inpatient status. LOS is expected to exceed 2 overnights. For complete details of the H&P refer to that document. Objective Vital signs: Temperature 97.4 F 02/06/17 00:07 Pulse Rate 83 02/06/17 11:53 Respiratory Rate 18 02/06/17 11:54 Blood Pressure 99/65 02/06/17 00:07 Pulse Oximetry 92 02/06/17 11:54 Rhythm: Normal Sinus Rhythm Height/Weight/BMI: Height 1.83 m Weight 56.2 kg Body Mass Index 17.4 Hospital Course This is a general summary of the patient's hospital course. For more details refer to the complete medical record. Hospital course: 02/02/17 Admitted to inpatient status for hypoxemia with room air saturation of 88%. Started Tamiflu for influenza A. CXR showed hyperinflation. Provided supportive respiratory care with DuoNebs, Pulmicort, acapella. Tobacco cessation information provided. PLAN - 02/03/17 ([place]) Overall, Enrique is making good gains and reports feeling much better. He continues to require supplemental oxygen but has been weaned down to 1L via NC. Continue to wean down oxygen as he does not wear oxygen at home. Suspected history of COPD given history of tobaccoism and initial CXR findings consistent with COPD. Recommend goal of pulse ox to be 90-95%. Continue Tamiflu for treatment of influenza A - initiated on 02/02/17-02/06/17. Maintain respiratory precautions until Tamiflu is complete. No wheezing heard on exam, though course lung sounds noted bilaterally in bases. Continue DuoNeb and Pulmicort treatments and encourage Acapella for pulmonary toileting. Given improved state without wheezing, will continue to hold off on steroid treatment. Discussed with Dr. Sky. Consider follow-up with pulmonology as out patient for additional pulmonary function testing given suspected COPD. Tobacco cessation counseling provided. Continue to encourage smoking cessation and nicotine patch provided. Asymptomatic hyponatremia noted on admission and resolved. Continue to monitor closely. Will recheck BMP in AM to monitor electrolytes and renal function. Encourage oral intake. History of daily alcohol use prior to admission. Patient denies withdrawal. Continue Serax PRN as well as folic acid and thiamine daily. Hyperglycemia noted with fasting labs. Suspect secondary to steroid effect and anticipate resolution in light of discontinuation of steroids. Will discontinue BGMs. Anticipate discharge in near future, hopefully 02/04/17. He denies a history of oxygen use at home. PLAN - 02/04 Continue to work on weaning down oxygen- currently on 3 liters. Continue with scheduled breathing tx Remains on Tamiflu through 02/06/17. Continue Mucinex DM and a cappella to mobilize secretions. Today to follow routine labs, white count at 14.5, likely secondary to prednisone use Discussed with attending, Dr Carreon 02/05/17 Saturations improvin-93% on 1-2L. Continue to wean O2. Remains on Tamiflu through 02/06/17. Has had 6 of 10 doses as of this morning. Continue with scheduled breathing tx. Continue acapella to mobilize secretions - will change Mucinex DM from as needed to scheduled. Encourage activities. Hope for discharge to home in near future once able to be transitioned off of O2. 02/06/17 Clinically improving. O2 needs much decreased RA to 0.5L. Eating well. Ambulating well. RT evaluated patient for home O2. Did not qualify for home O2. Will discharger to home. Medically stable. Will need 2 more doses of Tamiflu to complete course. Continue Acapella and Mucinex DM routinely for 1 week, then as needed. Continue home Advair and albuterol. Prednisone 20mg daily for 1 week. Will give Flu and Pneumovax now. F/U with Dr Velasco in 1 week. Will have patient off work for 1 week. See orders for details DVT Prophylaxis: SCD's, Lovenox Discharge Plan - Discharge Disposition Discharge Date: 02/06/17 Disposition: 01 Discharged Home, Self-Care *Condition: Stable Reason For Visit (Visit label in EMR): hypoxia, influenza A - Discharge Medications *Discharge Medications: New Albuterol Neb (0.083%) [Proventil Neb (0.083%)] 2.5 mg AEROSOL QID #1 box Oseltamivir Cap [Tamiflu] 75 mg PO BID #2 cap PredniSONE [Deltasone] 20 mg PO WB #5 tab Guaifenesin/Dm [Mucinex Dm] 1 tab PO BID tab Continue Escitalopram Oxalate [Lexapro] 20 mg PO DAILY Albuterol Sulfate [Proventil Hfa 90mcg] 90 mcg INH Q6H PRN PRN Reason: Shortness Of Air Restoril (temazepam) 15 mg capsule 15 mg PO DAILY #30 cap Advair Diskus (Fluticasone 250 mcg-salmeterol 50 mcg)dose powdr for inhalation 1 puff INH Q12H - Discharge Packet/Instructions *Diet: Regular *Activity: As tolerated. May return to work in 1 week *Pain Management/Treatment: Tylenol as needed *Wound Care: N/A Additional Instructions: Use Mucinex DM twice a day for 1 week to decrease cough and congestion; then as needed. Use Acapella 4 times a day for 1 week to decrease congestion; then as needed. *Expected Signs/Symptoms: Improvement of breathing. Decrease cough/congestion. *Notify Physician if: Temp > 100.4. Increase difficulty breathing. *During Business Hours Contact: Dr Velasco *After Business Hours Contact: [place] [facility] [place] Velasco or his covering physician contacted. *Pending Lab/Results: No Pending Lab - Referrals/Follow Up *Referrals/Follow Up: Lj Velasco DO [Family Provider] - 1 Week (Hopsital follow up for hypoxic respiratroy failure secondary to influenza type A ) - Patient Handouts - Dismissal Complete Discharge Instructions are:: Complete Physician Narrative - Narrative Physician: Lencho Carreon MD Attestation Narrative: Date: 02/06/17 Time: [id number] I have independently interviewed and examined patient prior to discharge. See my progress note from today for details. Medically stable for discharge to home.
--- NOTE | 2017-02-06 13:15 | Work/School Release ---
Work/School Release - Date Date: 02/06/17 - Work Release Excused for:: Mr Emery was hospitalized at [facility] from 02/02/17 until . He should be off work for at least 1 week to allow for recovery from his hospitalization. When he returns to work, he will not need restrictions. Thank you.
[2017-02-06] MEDS ORDERED: PNEUMOCOCCAL 13 VACCINE 0.5ml INJECTION IM ONE (13:32)
== END 2017-02-06 14:15 | disposition home or self-care (01) | DRG 193 ==
LOC: ED 14:04 → MED 17:51 → SUATTDRO 17:51 → MED 18:10
PROVIDERS: ADMIT Internal Medicine; ATTEND Hospitalist